=== PATIENT | female | born 1985 | race Caucasian/White ===

== ENCOUNTER 2020-01-10 11:06 | Outpatient (CLI) | payer OTHER ==
[2020-01-10 12:43] LABS: BACTERIA (WET MOUNT) 4+ BACTERIA SEEN; RBCS (WET MOUNT) FEW RBCS SEEN; T.VAGINALIS (WET MOUNT) NO TRICHOMONAS SEEN; WBCS (WET MOUNT) 4+ WBCS SEEN; YEAST (WET MOUNT) NO YEAST SEEN
[2020-01-10 13:03] LABS: APPEARANCE,URINE CLEAR; BILIRUBIN,URINE NEGATIVE (NEGATIVE); COLOR,URINE YELLOW; GLUCOSE, URINE NEGATIVE (NEGATIVE); KETONES,URINE NEGATIVE (NEGATIVE); LEUKOCYTE ESTERASE,URINE NEGATIVE (NEGATIVE); NITRITE,URINE NEGATIVE (NEGATIVE); PROTEIN,URINE NEGATIVE (NEGATIVE); URINE SPECIFIC GRAVITY 1.009; UROBILINOGEN,URINE NEGATIVE mg/dL (<2.0)
[2020-01-10 13:20] LABS: URINE AMPHETAMINES SCREEN NEGATIVE; URINE BARBITURATES SCREEN NEGATIVE; URINE BENZODIAZEPINES SCREEN NEGATIVE; URINE COCAINE SCREEN NEGATIVE; URINE MARIJUANA (THC) SCREEN NEGATIVE; URINE METHADONE SCREEN NEGATIVE; URINE PHENCYCLIDINE SCREEN NEGATIVE
== END 2020-01-10 13:03 | disposition home or self-care (01) ==
LOC: LC 11:06
PROVIDERS: ATTEND Obstetrics & Gynecology
PROC: 4A1HXCZ Monitoring of Products of Conception, Cardiac Rate, External Approach (ICD-10-PCS; principal; 2020-01-10)
DX: O09.523 Supervision of elderly multigravida, third trimester (principal); Z3A.30 30 weeks gestation of pregnancy
CPT/HCPCS: 80307; 81005; 84112; 87210

== ENCOUNTER 2020-03-03 17:57 | Outpatient (CLI) | payer OTHER ==
[2020-03-03] MEDS ORDERED: RINGERS SOLUTION,LACTATED 1,000 ML IV PRN (18:36)
[2020-03-03 18:37] LABS: APPEARANCE,URINE CLEAR; BILIRUBIN,URINE NEGATIVE (NEGATIVE); COLOR,URINE YELLOW; GLUCOSE, URINE NEGATIVE (NEGATIVE); KETONES,URINE TRACE mg/dL (NEGATIVE); LEUKOCYTE ESTERASE,URINE TRACE (NEGATIVE); NITRITE,URINE NEGATIVE (NEGATIVE); PROTEIN,URINE NEGATIVE (NEGATIVE); UROBILINOGEN,URINE NEGATIVE mg/dL (<2.0)
[2020-03-03 19:04] LABS: URINE AMPHETAMINES SCREEN NEGATIVE; URINE BARBITURATES SCREEN NEGATIVE; URINE BENZODIAZEPINES SCREEN NEGATIVE; URINE COCAINE SCREEN NEGATIVE; URINE MARIJUANA (THC) SCREEN NEGATIVE; URINE METHADONE SCREEN NEGATIVE; URINE PHENCYCLIDINE SCREEN NEGATIVE
--- NOTE | 2020-03-03 19:58 | Non Stress Test Report ---
Non Stress Test Datetime Report Generated by CPN: 03/03/2020 19:58 DEMOGRAPHIC Test Number: 1 EGA NST: 37.5 INDICATION Indication for Study (NST) Other: Labor check VITAL SIGNS Temperature - NST: 98.2 Pulse - NST: 75 RESP - NST: 16 NBPSYS NST: 107 NBPDIA NST: 63 URINE RESULTS Urine Protein, NST: Negative Urine Ketones - NST: Positive Urine Glucose - NST: Negative Urine Blood - NST: Negative MONITORING Monitor Explained: Monitor Explained; Test Explained; Patient Verbalized Understanding Time on Monitor: 03/03/2020 18:15 Time off Monitor: 03/03/2020 19:43 NST Duration: 88 NST INTERVENTIONS NST Interventions: PO Hydration; Reposition Patient Physician Notified NST: Dr. August BABY A: [id number] BABY A Movement : Present Contraction Frequency : x 3 FHR Baseline : 155 Accelerations : 15X15 Decelerations : None Variability : Moderate 6-25bpm NST Review: Meets Criteria for Reactive NST NST Review and Verified By : Francesco Sanabria, RN NST Results: Reactive NST REPORT Report Trigger: Send Report
== END 2020-03-03 19:50 | disposition home or self-care (01) ==
LOC: LC 17:57
PROVIDERS: ATTEND Obstetrics & Gynecology
DX: O47.1 False labor at or after 37 completed weeks of gestation (principal); O09.523 Supervision of elderly multigravida, third trimester; Z3A.37 37 weeks gestation of pregnancy
CPT/HCPCS: 80307; 81005; 84112

== ENCOUNTER 2020-03-09 09:26 | Inpatient (IN) | payer OTHER ==
[2020-03-09] MEDS ORDERED: PENICILLIN G POTASSIUM 5,000,000 UNIT in DEXTROSE 5%-WATER 100 ML IV ONE (09:36)
[2020-03-09] MEDS ORDERED: PENICILLIN G-K 5 MILLION UNIT VIAL ONE (09:55)
[2020-03-09] MEDS ORDERED: OXYTOCIN/NORMAL SALINE 20 UNIT/1,000 ML RTUINJ ONE (10:00)
[2020-03-09] MEDS ORDERED: MISOPROSTOL 0.2 MG TABLET ONE (10:00)
[2020-03-09] MEDS ORDERED: OXYTOCIN 10 UNIT/ML VIAL ONE (10:00)
[2020-03-09] MEDS ORDERED: LIDOCAINE 1% INJ-PF (10 MG/ML) 30 ML SDV ONE (10:00)
[2020-03-09] MEDS ORDERED: OXYTOCIN/NORMAL SALINE 20 UNIT/1,000 ML RTUINJ IV PRN ×2 (10:06→17:52)
[2020-03-09 10:31] LABS: ABSOLUTE LYMPHOCYTES (AUTO) 1.5 10^3/uL (0.5-4.7); ABSOLUTE MONOCYTES (AUTO) 0.4 10^3/uL (0.1-1.4); ABSOLUTE NEUT (AUTO) 4.4 10^3/uL (1.7-8.2); BASOPHILS % (AUTO) 0.4 % (0-2); EOSINOPHILS % (AUTO) 0.4 % (0-6); HEMATOCRIT 29.1 % (36.0-47.0); HEMOGLOBIN 10.3 g/dL (12.0-15.5); MEAN CORPUSCULAR HEMOGLOBIN 30.7 pg (27.0-33.4); MEAN CORPUSCULAR HGB CONC 35.5 g/dL (32.0-36.0); MEAN CORPUSCULAR VOLUME 86 fl (80-97); MONOCYTES % (AUTO) 6.5 % (3-13); PLATELET COUNT 185 10^3/uL (150-450); RED BLOOD COUNT 3.37 10^6/uL (3.72-5.28); SEGMENTED NEUTROPHILS % (AUTO) 69.7 % (42-78); TOTAL CELLS COUNTED % (AUTO) 100 %; WHITE BLOOD COUNT 6.3 10^3/uL (4.0-10.5)
[2020-03-09 10:50] LABS: URINE AMPHETAMINES SCREEN NEGATIVE; URINE BARBITURATES SCREEN NEGATIVE; URINE BENZODIAZEPINES SCREEN NEGATIVE; URINE COCAINE SCREEN NEGATIVE; URINE MARIJUANA (THC) SCREEN NEGATIVE; URINE METHADONE SCREEN NEGATIVE; URINE PHENCYCLIDINE SCREEN NEGATIVE
[2020-03-09] MEDS ORDERED: FENTANYL/BUPIVACAINE/NS/PF 300 MCG/150 ML RTUINJ EPI ONE (13:20)
[2020-03-09] MEDS ORDERED: ONDANSETRON HCL INJ/PF 4 MG/2 ML SDV ONE (13:20)
[2020-03-09] MEDS ORDERED: EPHEDRINE SULFATE INJ 50 MG/1 ML AMPULE ONE (13:20)
[2020-03-09] MEDS ORDERED: BUPIVACAINE HCL 0.25 % INJ/PF (2.5 MG/1 ML) 30 ML VIAL ONE (13:21)
[2020-03-09] MEDS: PENICILLIN G POTASSIUM 2,500,000 UNIT in DEXTROSE 5%-WATER 50 ML IV SCH (13:28)
[2020-03-09] MEDS ORDERED: ONDANSETRON HCL INJ/PF 4 MG/2 ML SDV IV ONE (13:28)
[2020-03-09 13:37] LABS: APPEARANCE,URINE CLEAR; BILIRUBIN,URINE NEGATIVE (NEGATIVE); COLOR,URINE YELLOW; GLUCOSE, URINE NEGATIVE (NEGATIVE); KETONES,URINE NEGATIVE (NEGATIVE); LEUKOCYTE ESTERASE,URINE NEGATIVE (NEGATIVE); NITRITE,URINE NEGATIVE (NEGATIVE); PROTEIN,URINE NEGATIVE (NEGATIVE); URINE SPECIFIC GRAVITY 1.005; UROBILINOGEN,URINE NEGATIVE mg/dL (<2.0)
--- NOTE | 2020-03-09 14:35 | Admission Physical ---
Datetime Report Generated by CPN: 03/09/2020 14:35 CURRENT ADMISSION Hx Assessment: The History has been Reviewed and is Current Chief Complaint: Suspected Ruptured Membranes Indication for Induction: Not Applicable Admit Impression : Term, Intrauterine ; Ruptured Membranes Admit Plan: Admit to Unit; Initiate Labor Protocol ALLERGIES Medication Allergies: Yes Medication Allergies: Sulfa (Sulfonamide Antibiotics)/AZ/Hives (01/10/2020) Latex: No Latex Allergies Food Allergies: none Environmental Allergies: none OBSTETRICAL HISTORY EDC: 03/19/2020 00:00 : 4 Para: 2 Term: 2 : 0 SAB: 1 IAB: 0 Ectopic: 0 Livin Cesareans: 0 VBACs: 0 Multiple Births: 0 Gestational Diabetes: No Rh Sensitization: No Incompetent Cervix: No SADA: No Infertility: No Uterine Anomaly: No IUGR: No Hx Previous C/S: No Macrosomia: No Hx Loss/Stillborn: No PIH: No Hx : No Placenta Previa/Abruption: No Depression/PP Depression: No PTL/PROM: No Post Hemorrhage: No Current Procedures: Ultrasound; NST Obstetrical History Comments: G4- current SEE RECORDS Alcohol: No Marijuana : No Cocaine: No Other Illicit Drugs: No Cigarettes: Never Smoker. [id number] MEDICAL HISTORY Diabetes: No Blood Transfusion: No Pulmonary Disease (Asthma, TB): No Breast Disease: No Hypertension: No Procurement Buyer Surgery: No Heart Disease: No Hosp/Surgery: Yes Autoimmune Disorder: No Anesthetic Complications: No Kidney Disease: No Abnormal Pap Smear: No Neuro/Epilepsy: No Psychiatric Disorders: No Other Medical Diseases: No Hepatitis/Liver Disease: No Varicosities/Phlebitis: No Trauma/Violence : No Thyroid Dysfunction: No Medical History Comments: galbladder- 2008. HX OF PP PRE E INFECTIOUS HISTORY Gonorrhea: No Genital Herpes: No Chlamydia: Yes Syphilis: No Hepatitis: No HIV/AIDS Exposure: No Rash or Viral Illness: No HPV: No Infectious History Comments: Chlamydia 05/2019- [facility] PHYSICAL EXAM General: Normal Neurologic: Normal Heart: Normal Lungs: Normal Extremities: Normal Pelvic Type: Adequate Physical Exam Comments: proven to 6lbs 12 oz Vital Signs: Reviewed; Within Normal Limits VAGINAL EXAM Dilatation: 1 Contraction Comments: 1.5-6 MEMBRANES Pooling: Positive Membranes: Ruptured Amniotic Fluid Color: Clear FETUS A EGA: 38.4 Monitoring: External US Decelerations: None FHR Category: Category I Presentation: Vertex Admit Comment: 34yo at 38w4d into clinic this am with SROM at around 730am and verified with pooling at office. Sent over for direct admission. Pt is O pos, GBS pos, RI. complicated by AMA. Pt was already brenda, plan was to start pitocin for augment if needed but pt contractions continued and became stronger and now obtaining epidural. PCN given for GBS. Anticipate delivery. Dr. Page is the OB acid conditioning worker and aware of admission and pt. status. PLANS FOR LABOR AND DELIVERY Labor and Delivery: None Pain Management: Epidural Feeding Preference: Breast Benefit of Breast Feed Discussed: Yes Circumcision: N/A INFORMED CONSENT Assignment: Easton Page MD Signature: with User ID: Raj : with User ID: Raj
[2020-03-09] MEDS ORDERED: PSEUDOEPHEDRINE HCL 30 MG TABLET PO PRN (17:52)
[2020-03-09] MEDS ORDERED: PROMETHAZINE HCL 25 MG TABLET PO PRN (17:52)
[2020-03-09] MEDS ORDERED: PROMETHAZINE HCL 25 MG SUPP.RECT PR PRN (17:52)
[2020-03-09] MEDS ORDERED: MAGNESIUM HYDROXIDE SUSP 30 ML UDCUP PO PRN (17:52)
[2020-03-09] MEDS ORDERED: MEASLES,MUMPS&RUBELLA VACC/PF 0.5 ML VIAL SUBCUT PRN (17:52)
[2020-03-09] MEDS ORDERED: ACETAMINOPHEN 325 MG TABLET PO PRN (17:52)
[2020-03-09] MEDS ORDERED: GLYCERIN/WITCH HAZEL LEAF 1 EACH MED..WIPE TP PRN (17:52)
[2020-03-09] MEDS ORDERED: PROMETHAZINE HCL INJ 25 MG/1 ML VIAL IV PRN (17:52)
[2020-03-09] MEDS ORDERED: BENZOCAINE/MENTHOL AEROSOL SPRAY 56 ML TOP PRN (17:52)
[2020-03-09] MEDS ORDERED: DIBUCAINE 1% OINTMENT 28 GM TP PRN (17:52)
[2020-03-09] MEDS ORDERED: DIPH/PERTUSS(ACELL)/TETANUS VAC/PF 0.5 ML SYR (>=10YO) IM PRN (17:52)
[2020-03-09] MEDS ORDERED: DIPHENHYDRAMINE HCL 25 MG CAPSULE PO PRN (17:52)
[2020-03-09] MEDS ORDERED: NA PHOS,M-B/NA PHOS,DI-BA (ADULT) 133 ML ENEMA PR PRN (17:52)
[2020-03-09] MEDS ORDERED: IBUPROFEN 800 MG TABLET PO SCH (18:00)
--- NOTE | 2020-03-09 20:29 | Delivery Summary ---
Del Sum A-C Datetime Report Generated by CPN: 03/09/2020 20:28 DELIVERY PERSONNEL DELIVERY PERSONNEL: [id number] Delivery Doctor:: Adina Mckeon CNM Labor and Delivery Nurse:: Val Miles RN Nursery Nurse:: Fanta Menjivar RN Plasterer Helper/VALVE AND REGULATOR REPAIRER: Sarah Sim, CORPORATE DEVELOPMENT ASSOCIATE Plasterer Helper/VALVE AND REGULATOR REPAIRER: Kikabernard Diaz, CORPORATE DEVELOPMENT ASSOCIATE MATERNAL INFORMATION Delivery Anesthesia: Epidural Medications After Delivery: Pitocin Bolus-Please Comment Meds After Delivery Comment: 20 Units/1000ml NSS Delivery QBL: 50 Maternal Complications: None Provider Comments: pt progressed to c/c/3, began pushing and quickly delivered a viable baby girl through nuchal x2. Baby with vigorous respiratory effort and cry spontaneously at . Baby placed on maternal abdomen, cord allowed to stop pulsating then clamped x2 and cut by FOB (cord blood obtained). Baby with good tone and heart rate but would not cry again and nurse called nursery for additional assessment. Placenta delivered spontaneously intact(3vc noted), fundus firm, scant bleeding. Vaginal and perineal inspection revealed no lacerations. Mother and baby remain stable at this time. LABOR SUMMARY EDC: 03/19/2020 00:00 No. Babies in Womb: 1 Attempted: No Labor Anesthesia: Epidural LABOR INFORMATION Reason for Induction: Not Applicable Onset of Labor: 03/09/2020 14:00 Complete Dilatation: 03/09/2020 17:09 Oxytocin: Augmentation Group B Beta Strep: Positive Antibiotics # of Doses: 2 Antibiotics Time of Last Dose: 1328 Name of Antibiotic Given: Penicillin Steroids Given: None Reason Steroids Not Administered: Not Applicable MEMBRANES Membranes Rupture Method: Spontaneous Rupture of Membranes: 03/09/2020 06:30 Length of Rupture (hr): 11.12 Amniotic Fluid Color: Clear Amniotic Fluid Amount: Large Amniotic Fluid Odor: None STAGES OF LABOR Stage 1 hr: 3 Stage 1 min: 9 Stage 2 hr: 0 Stage 2 min: 28 Stage 3 hr: 0 Stage 3 min: 5 Total Time in Labor hr: 3 Total Time in Labor min: 42 VAGINAL DELIVERY Episiotomy: None Laceration #1: None Laceration Extension #1: N/A Other Laceration: n/a Laceration Repair: Not Applicable Sponge Count Correct: N/A Sharps Count Correct: N/A CSECTION DELIVERY Primary Indication: N/A Secondary Indication: N/A CSection Incidence: N/A Labor: N/A Elective: N/A CSection Incision: N/A BABY A INFORMATION Delivery Date/Time: 03/09/2020 17:37 Method of Delivery: Vaginal Nurse Controlled Delivery: No Born in Route : No : N/A Forceps: N/A Vacuum Extraction: N/A Shoulder Dystocia : No PRESENTATION/POSITION BABY A Presentation: Cephalic Cephalic Presentation: Vertex Vertex Position: Left Occipital Anterior Breech Presentation: N/A PLACENTA INFORMATION BABY A Placenta Delivery Time : 03/09/2020 17:42 Placenta Method of Delivery: Spontaneous Placenta Status: Delivered SCORES BABY A Heart Rate 1 min: >100 bpm Resp Effort 1 min: Slow, Irregular Reflex Irritability 1 min: Cough or Sneeze or Pulls Away Muscle Tone 1 min: Active Motion Color 1 min: Blue/Pale Resuscitation Effort 1 min: Tactile Stimulation SCORE 1 MIN: 7 Heart Rate 5 min: >100 bpm Resp Effort 5 min: Good Cry Reflex Irritability 5 min: Cough or Sneeze or Pulls Away Muscle Tone 5 min: Active Motion Color 5 min: Body [place], Extremities Blue SCORE 5 MIN: 9 INFORMATION BABY A Gestational Age at Delivery: 38.4 Gestational Status: Early Term- 37- 38.6 Weeks Infant Outcome : Liveborn Condition : Stable Infant Sex: Female IDENTIFICATION BABY A Infant Verification Date/Time: 03/09/2020 17:49 ID Band Number: [id number] Mother's Name Verified: Yes Infant RN Verifying Infant: Avani SkyVANCE iyer Additional Verifying Personnel: Marlin RN WEIGHT/LENGTH BABY A Infant Birthweight (gm): 2874 Infant Weight (lb): 6 Weight (oz): 5 Infant Length (in): 18.50 Infant Length (cm): 46.99 CORD INFORMATION BABY A No. Cord Vessels: 3 Nuchal Cord : Around Neck x2, Tight Cord Blood Taken: Yes-For Eval (Mom's Blood Type - or O+) Infant Suction: Mouth ASSESSMENT BABY A Skin to Skin: Yes BABY B INFORMATION : N/A SIGNATURES Assignment: Easton Page MD Signature: with User ID: Raj : with User ID: Raj
[2020-03-09] MEDS: FERROUS SULFATE 325 MG TABLET PO SCH (21:47)
[2020-03-09] MEDS: DOCUSATE SODIUM 100 MG CAPSULE PO SCH (21:47)
[2020-03-09] MEDS: FAMOTIDINE 20 MG TABLET PO SCH (21:48)
[2020-03-09] MEDS: IBUPROFEN 800 MG TABLET PO SCH (21:48)
[2020-03-10 06:11] LABS: HEMATOCRIT 31.1 % (36.0-47.0); HEMOGLOBIN 10.9 g/dL (12.0-15.5); MEAN CORPUSCULAR HEMOGLOBIN 30.3 pg (27.0-33.4); MEAN CORPUSCULAR VOLUME 87 fl (80-97); PLATELET COUNT 195 10^3/uL (150-450); RED BLOOD COUNT 3.59 10^6/uL (3.72-5.28); RED CELL DISTRIBUTION WIDTH 14.1 % (11.5-14.0); WHITE BLOOD COUNT 8.3 10^3/uL (4.0-10.5)
[2020-03-10] MEDS: IBUPROFEN 800 MG TABLET PO SCH ×3 (06:16→21:01)
[2020-03-10] MEDS: SENNOSIDES/DOCUSATE 8.6-50 MG 1 EACH TABLET PO SCH (10:18)
[2020-03-10] MEDS: DOCUSATE SODIUM 100 MG CAPSULE PO SCH ×2 (10:18→17:31)
[2020-03-10] MEDS: FAMOTIDINE 20 MG TABLET PO SCH (10:18)
[2020-03-10] MEDS: FERROUS SULFATE 325 MG TABLET PO SCH ×2 (10:18→17:31)
[2020-03-10] MEDS: PRENATAL VITAMIN W DHA CAPSULE PO SCH (10:18)
--- NOTE | 2020-03-10 10:57 | PDOC PROGRESS REPORT ---
Subjective-OB Progress Note for:: 03/10/20 Subjective: reports bleeding slowing, pain controlled with current meds. denies needs Physical Exam (OB) Vital Signs: Temp Pulse Resp BP Pulse Ox 98.6 F 56 L 16 110/59 L 99 03/10/20 07:36 03/10/20 07:36 03/10/20 07:36 03/10/20 07:36 03/10/20 07:36 Intake & Output 03/09/20 03/10/20 03/11/20 06:59 06:59 06:59 Intake Total 520 Output Total 100 Balance 420 Weight 82.1 kg - Abdomen Description: Soft Hernia Present: No Fundal Description: Firm, Midline Fundal Height: u/u - u/2 - Abdominal Distension: No distension Tenderness: Nontender - Extremities Lower extremities: Altaf's sign - neg Calf: Normal, Nontender Objective-Diagnostic Laboratory: 03/10/20 06:06 03/09/20 03/09/20 03/10/20 09:40 10:12 06:06 WBC 8.3 RBC 3.59 L Hgb 10.9 L Hct 31.1 L MCV 87 MCH 30.3 MCHC 35.0 RDW 14.1 H Plt Count 195 Urine Color YELLOW Urine Appearance CLEAR Urine pH 8.0 Ur Specific Brutus 1.005 Urine Protein NEGATIVE Urine Glucose (UA) NEGATIVE Urine Ketones NEGATIVE Urine Blood SMALL H Urine Nitrite NEGATIVE Ur Leukocyte Esterase NEGATIVE Urine WBC (Auto) 1 Blood Type O POSITIVE Antibody Screen NEGATIVE Assessment and Plan(PN) - Assessment and Plan (1) Advanced maternal age (AMA) in Is this a current diagnosis for this admission?: Yes (2) Positive GBS test Is this a current diagnosis for this admission?: Yes (3) Term Is this a current diagnosis for this admission?: Yes - Time Spent with Patient Time with patient: Less than 15 minutes - Disposition Anticipated Discharge: Home Within: within 24 hours
[2020-03-10] MEDS: PENICILLIN G POTASSIUM 2,500,000 UNIT in DEXTROSE 5%-WATER 50 ML IV SCH (11:11)
[2020-03-10] MEDS: ACETAMINOPHEN WITH CODEINE #3 TABLET PO PRN ×3 (11:21→23:54)
[2020-03-11] MEDS: FAMOTIDINE 20 MG TABLET PO SCH ×2 (03:54→09:33)
[2020-03-11] MEDS: IBUPROFEN 800 MG TABLET PO SCH (05:25)
[2020-03-11 07:53] VITALS: BP 119/73
[2020-03-11] MEDS: PRENATAL VITAMIN W DHA CAPSULE PO SCH (09:33)
[2020-03-11] MEDS: FERROUS SULFATE 325 MG TABLET PO SCH (09:33)
[2020-03-11] MEDS: DOCUSATE SODIUM 100 MG CAPSULE PO SCH (09:33)
[2020-03-11] MEDS: SENNOSIDES/DOCUSATE 8.6-50 MG 1 EACH TABLET PO SCH (09:41)
--- NOTE | 2020-03-11 11:26 | PDOC DISCHARGE SUMMARY ---
Impression - Admit/DC Date/PCP Admission Date/Primary Care Provider: 03/09/20 09:30 SHOLA URIARTE MD Discharge Date: 03/11/20 - Discharge Diagnosis (1) Advanced maternal age (AMA) in Is this a current diagnosis for this admission?: Yes (2) Positive GBS test Is this a current diagnosis for this admission?: Yes (3) Term Is this a current diagnosis for this admission?: Yes (4) Normal vaginal delivery Is this a current diagnosis for this admission?: Yes - Additional Information Discharge Diet: Regular Discharge Activity: Balance Activity w/Rest, Pelvic Rest Referrals: SHOLA URIARTE MD [Primary Care Provider] - Prescriptions: Ibuprofen [Motrin 800 mg Tablet] 800 mg PO Q8HP PRN #60 tablet PRN Reason: Home Medications: Pnv W-O Ca No5/Fe Fumarate/FA [-U Multiple Vitamin Capsule] 1 cap PO DAILY 12/26/12 Ibuprofen [Motrin 800 mg Tablet] 800 mg PO Q8HP PRN #60 tablet 03/11/20 Results Laboratory Results: WBC 8.3 10^3/uL (4.0-10.5) 03/10/20 06:06 RBC 3.59 10^6/uL (3.72-5.28) L 03/10/20 06:06 Hgb 10.9 g/dL (12.0-15.5) L 03/10/20 06:06 Hct 31.1 % (36.0-47.0) L 03/10/20 06:06 MCV 87 fl (80-97) 03/10/20 06:06 MCH 30.3 pg (27.0-33.4) 03/10/20 06:06 MCHC 35.0 g/dL (32.0-36.0) 03/10/20 06:06 RDW 14.1 % (11.5-14.0) H 03/10/20 06:06 Plt Count 195 10^3/uL (150-450) 03/10/20 06:06 Lymph % (Auto) 23.0 % (13-45) 03/09/20 10:12 Warren % (Auto) 6.5 % (3-13) 03/09/20 10:12 Eos % (Auto) 0.4 % (0-6) 03/09/20 10:12 Baso % (Auto) 0.4 % (0-2) 03/09/20 10:12 Absolute Neuts (auto) 4.4 10^3/uL (1.7-8.2) 03/09/20 10:12 Absolute Lymphs (auto) 1.5 10^3/uL (0.5-4.7) 03/09/20 10:12 Absolute Monos (auto) 0.4 10^3/uL (0.1-1.4) 03/09/20 10:12 Absolute Eos (auto) 0.0 10^3/uL (0.0-0.6) 03/09/20 10:12 Absolute Basos (auto) 0.0 10^3/uL (0.0-0.2) 03/09/20 10:12 Seg Neutrophils % 69.7 % (42-78) 03/09/20 10:12 Urine Color YELLOW 03/09/20 09:40 Urine Appearance CLEAR 03/09/20 09:40 Urine pH 8.0 (5.0-9.0) 03/09/20 09:40 Ur Specific Martin 1.005 03/09/20 09:40 Urine Protein NEGATIVE mg/dL (NEGATIVE) 03/09/20 09:40 Urine Glucose (UA) NEGATIVE mg/dL (NEGATIVE) 03/09/20 09:40 Urine Ketones NEGATIVE mg/dL (NEGATIVE) 03/09/20 09:40 Urine Blood SMALL (NEGATIVE) H 03/09/20 09:40 Urine Nitrite NEGATIVE (NEGATIVE) 03/09/20 09:40 Urine Bilirubin NEGATIVE (NEGATIVE) 03/09/20 09:40 Urine Urobilinogen NEGATIVE mg/dL (<2.0) 03/09/20 09:40 Ur Leukocyte Esterase NEGATIVE (NEGATIVE) 03/09/20 09:40 Urine WBC (Auto) 1 /HPF 03/09/20 09:40 Squamous Epi Cells Auto <1 /HPF 03/09/20 09:40 Urine Mucus (Auto) RARE /LPF 03/09/20 09:40 Urine Ascorbic Acid NEGATIVE (NEGATIVE) 03/09/20 09:40 Urine Opiates Screen NEGATIVE 03/09/20 09:40 Urine Methadone Screen NEGATIVE 03/09/20 09:40 Ur Barbiturates Screen NEGATIVE 03/09/20 09:40 Ur Phencyclidine Scrn NEGATIVE 03/09/20 09:40 Ur Amphetamines Screen NEGATIVE 03/09/20 09:40 U Benzodiazepines Scrn NEGATIVE 03/09/20 09:40 Urine Cocaine Screen NEGATIVE 03/09/20 09:40 U Marijuana (THC) Screen NEGATIVE 03/09/20 09:40 RPR NONREACTIVE (NONREACTIVE) 03/09/20 10:12 Blood Type O POSITIVE 03/09/20 10:12 Antibody Screen NEGATIVE 03/09/20 10:12 Plan Plan of Treatment: follo up in 4 weeks at [facility] for post check
== END 2020-03-11 14:21 | disposition home or self-care (01) | DRG 807 ==
LOC: LC 09:26 → LR 09:30 → 2S 20:20
PROVIDERS: ADMIT Obstetrics & Gynecology Gynecology; ATTEND Obstetrics & Gynecology Gynecology
PROC: 10E0XZZ Delivery of Products of Conception, External Approach (ICD-10-PCS; principal; 2020-03-09)
DX: O69.1XX0 Labor and delivery complicated by cord around neck, with compression, not applicable or unspecified (principal); Z37.0 Single live birth; O99.824 Streptococcus B carrier state complicating childbirth; Z88.2 Allergy status to sulfonamides; Z3A.38 38 weeks gestation of pregnancy
CPT/HCPCS: 1967; 36415; 80307; 81001; 85025; 85027; 86592; 86850; 86900; 86901; J2405; J2540; J2590; J3010; J3490; J7060